=== PATIENT | female | born 1980 | race Caucasian/White ===

== ENCOUNTER 2023-06-12 15:37 | Outpatient (AMB) | payer OTHER, SELFPAY ==
--- NOTE | 2023-06-12 16:35 | MHC.OFFVISPS ---
Intake Intake Visit Reasons: ect referral Medication List - Last Reconciled 07/08/23 by Johnathon Martinez MD lithium carbonate ER mg PO quetiapine 50 mg PO BEDTIME sertraline 100 mg PO DAILY HPI- Psychiatric Chief Complaint: ect referral HPI Narrative: The patient is a 43-year-old year old female seen with her mother referred by Dr. Zuniga for ECT the patient has been depressed not responding to medication treatment increasingly hopeless helpless thoughts of self-harm at about the same time she went out of work she was working as an commercial accountant . The patient became increasingly depressed with chronic back pain requiring spinal fusion. Became increasingly depressed during COVID and isolated. Also had difficulty with the last corporation that she was working for The patient went off medication in December. Patient has been dealing with chronic back pain migraines she does TMS last year than josias. She has not been caring for herself ruminating she is failed escitalopram Seroquel lithium had been on olanzapine no trial of mirtazapine lamotrigine discontinued lithium has been discontinued Topamax discontinued Past Psychiatric History: Patient has failed past trials of therapy failed trials of Cymbalta olanzapine Abilify Viibryd Wellbutrin Lexapro disappear remain Pristiq denies any manic history Mental Status Exam Mental Status Exam Narrative: Mental Status Exam Narrative: Appearance: Casually dressed Behavior: Cooperative psychomotor: Normal Speech: Regular rate rhythm volume Thought proccess logical Thought content: Helpless hopeless ruminating Mood: Depressed Affect: Constricted appropriate to mood SI: Thoughts would be better off denies current intent HI:denies VH/AH:none Delusions: Not noted Insight/judgment: Asking for help questions answered regarding ECT Memory/cog: Intact Assessment and Plan Assessment & Plan (1) Depression, major, severe recurrence: Status: Acute Code(s): F33.2 - Major depressive disorder, recurrent severe without psychotic features (2) Generalized anxiety disorder: Status: Acute Code(s): F41.1 - Generalized anxiety disorder (3) Migraine: Status: Acute Code(s): G43.909 - Migraine, unspecified, not intractable, without status migrainosus Plan Patient referred by Dr. Zuniga for consideration of treatment with ECT. The patient is hopeless helpless ruminating has not responded to medication ketamine TMS in combination with psychotherapy. Discussed procedure risks benefits patient has no significant content indication. CBC Chem profile EKG TSH ordered. Patient given literature Orders: Orders Complete Blood Count Auto Diff 06/12/23 Z01.818 - Encounter for other preprocedural examination, F33.2 - Major depressive disorder, recurrent severe without psychotic features ECG 12 lead EKG 06/12/23 Z01.818 - Encounter for other preprocedural examination, F33.2 - Major depressive disorder, recurrent severe without psychotic features Comprehensive [place]. Panel Fast 06/12/23 Z01.818 - Encounter for other preprocedural examination, F33.2 - Major depressive disorder, recurrent severe without psychotic features TSH reflex Free T4 06/12/23 Z01.818 - Encounter for other preprocedural examination, F33.2 - Major depressive disorder, recurrent severe without psychotic features Vitamin B12 and Folate 06/12/23 Z01.818 - Encounter for other preprocedural examination, F33.2 - Major depressive disorder, recurrent severe without psychotic features Counseling and coordination of Care Diagnosis and Prognosis Counseling: Impact of diagnosis on life functions and Adequacy of current interventions Details-Diagnosis/Prognosis counseling: Discussed options for treatment risks of nonresponsive severe recurrent depression patient stated that she will consider her options for treatment reviewed protocol for doing ECT including inpatient and outpatient patient was seen with her mother Details: I spent [60] minutes reviewing the record, seeing the patient and documenting in the medical record. Counseling provided to the patient/caregiver as outlined below. Addressed patient/caregiver concerns regarding current medication regime including effective adherence. Addressed patient/caregiver concerns regarding diagnosis and prognosis including accuracy of diagnosis, prognosis over time, impact of diagnosis. Addressed patient/caregiver concerns regarding impact of recent stressors. [facility] Medical History (Updated 07/08/23 @ 19:45 by Johnathon Martinez MD) Generalized anxiety disorder Migraine Social History: Patient is an commercial accountant currently not working she has single no children lives with 2 dogs. She is supported emotionally by her mother. Substance History: Medical marijuana Coding Level of Care Code Psych Diag Eval w/Med (94661) Diagnoses Depression, major, severe recurrence F33.2 Generalized anxiety disorder F41.1 Migraine G43.909
== END 2023-06-12 16:25 | disposition home or self-care (01) ==
LOC: HO.HOP 15:38
PROVIDERS: PCP Internal Medicine; Visit Provider Psychiatry & Neurology Psychiatry
DX: F33.2 Major depressive disorder, recurrent severe without psychotic features (principal); F41.1 Generalized anxiety disorder; G43.909 Migraine, unspecified, not intractable, without status migrainosus
CPT/HCPCS: 90792

== ENCOUNTER → 2023-06-12 15:37 | Outpatient (BNVA) | payer OTHER, SELFPAY | PROVIDERS: PCP Internal Medicine; Visit Provider Psychiatry & Neurology Psychiatry | DX: F33.2 Major depressive disorder, recurrent severe without psychotic features (principal); F41.1 Generalized anxiety disorder; G43.909 Migraine, unspecified, not intractable, without status migrainosus | CPT/HCPCS: 90792 ==